=== PATIENT | female | born 1980 | race Caucasian/White ===

== ENCOUNTER → 2023-12-19 11:35 | Outpatient (REF) | payer OTHER, SELFPAY | LOC: HWWDC 11:35 | PROVIDERS: ATTENDING PHYSICIAN Obstetrics & Gynecology Gynecology; FAMILY PHYSICIAN Family Medicine | DX: Z12.31 Encounter for screening mammogram for malignant neoplasm of breast (principal) | CPT/HCPCS: 77063; 77067 ==

== ENCOUNTER → 2024-01-02 09:34 | Outpatient (REF) | payer OTHER, SELFPAY | LOC: WDC 09:34 | PROVIDERS: ATTENDING PHYSICIAN Obstetrics & Gynecology Gynecology; FAMILY PHYSICIAN Family Medicine | DX: R92.8 Other abnormal and inconclusive findings on diagnostic imaging of breast (principal) | CPT/HCPCS: 76642 ==

== ENCOUNTER 2025-07-11 02:28 | Emergency (ER) | payer OTHER, SELFPAY ==
[2025-07-11 02:44] VITALS: BP 138/86
[2025-07-11 03:00] LABS: Hematocrit 39.2 % (37.0-47.0); Hemoglobin 12.8 g/dL (12.0-16.0); Mean Corp Hgb Conc. 32.7 g/dL (33.0-37.0); Mean Corpuscular Volume 84.1 fL (81.0-99.0); Nucleated Red Blood Cells % 0 %; Platelet Count 291 10^3/uL (130-400); Red Cell Dist. Width 12.7 % (11.5-14.5)
[2025-07-11 03:27] LABS: ALT (SGPT) 22 U/L (0-35); AST (SGOT) 20 U/L (14-36); Albumin 4.4 g/dl (3.5-5.0); Alkaline Phosphatase 113 U/L (38-126); Blood Urea Nitrogen 13 mg/dl (7-17); Calcium 9.6 mg/dl (8.4-10.2); Carbon Dioxide 25 mmol/L (22-30); Chloride 108 mmol/L (98-107); Glucose 110 mg/dl (70-99); Potassium 4.1 mmol/L (3.5-5.1); Sodium 140 mmol/L (135-145); Total Protein 7.6 g/dl (6.3-8.2); eGFR > 60.00
[2025-07-11 03:31] LABS: Troponin I < 0.012 ng/ml
[2025-07-11 04:37] VITALS: BP 123/79
[2025-07-11 04:49] VITALS: BMI 30.6
[2025-07-11 05:00] VITALS: BP 119/63
[2025-07-11 06:00] VITALS: BP 122/89
--- NOTE | 2025-07-11 06:29 | ED.GENMED ---
History of Present Illness
General
Chief Complaint: Breathing Problem
Source: patient
Exam Limitations: none
Time Seen by Provider: 07/11/25 06:09
History of Present Illness
History of Present Illness:
Note:
CHIEF COMPLAINT(S)
Left arm pain and difficulty breathing.
HISTORY OF PRESENT ILLNESS
The patient is a 45-year-old female who presented with a primary complaint of left arm pain. The symptoms began around 11 PM the prior evening while the patient was watching a movie. The pain was described as a heaviness and dull ache primarily
concentrated from the mid-upper arm to the mid-forearm near the elbow. She mentioned the pain was significant enough to cause her to stop watching the movie. At the onset, the patient was at rest. The discomfort was not associated with chest pain
but was accompanied by a feeling of inability to take a deep breath. She states that she wonders if she got herself worked up. She felt occasional queasiness, although it was unclear if this was due to anxiety. The patient denied neck pain or any
recent neck injuries. She has no history of smoking or regular medication use, though she mentioned an allergy to Dermabond. The symptomatology was noted to have improved by the time of presentation but intensified from tolerable to worse before
subsiding. She has had recent blood work and this was reviewed at bedside. Total cholesterol was 199. HDL and LDL were within range. PCP will continue to monitor
PAST MEDICAL AND SURGICAL HISTORY
The patient has undergone two surgeries in the past three years. The details of the surgeries were not specified, but the patient recalled experiencing difficulty breathing upon waking from anesthesia.
ADDITIONAL HISTORY OBTAINED FROM SOURCES OTHER THAN THE PATIENT
Not applicable.
EXTERNAL RECORDS REVIEWED
The patient mentioned recent lab work and results from [facility], including cholesterol levels and other biomarkers. A recent EKG and troponin levels were normal, and there was no indication of pneumonia or cardiac enlargement on chest
x-ray. A repeated troponin test was planned to confirm these findings.
CHRONIC MEDICAL CONDITIONS SIGNIFICANTLY AFFECTING CARE
High cholesterol levels were noted, based on recent lab evaluations.
SOCIAL DETERMINANTS AFFECTING HEALTH
The patient reported no alcohol or drug use and no smoking history. She also denied caffeine consumption.
MEDICATIONS
The patient reported no current medications.
REVIEW OF SYSTEMS
- Musculoskeletal: Left arm pain described as heaviness and dull ache.
- Respiratory: Difficulty taking a deep breath at the onset of symptoms.
- Neurological: No related symptoms reported.
- Gastrointestinal: Occasional feelings of queasiness, potentially anxiety-related.
PHYSICAL EXAM
General: Alert, no acute distress.
Skin: Warm, dry.
Head: Normocephalic, atraumatic.
Neck: Supple, trachea midline.
Eye Ear, Nose, Mouth, and Throat: Oral mucosa moist.
Cardiovascular: Normal peripheral perfusion, no edema. Heart regular without murmur
Respiratory: Respirations are non-labored. Lungs clear to auscultation bilaterally
Gastrointestinal: Abdomen nondistended.
Back: Normal range of motion, normal alignment.
Musculoskeletal: Normal range of motion, normal strength. Normal distal cap refill bilaterally. Arm nontender. Normal range of motion of the elbow and shoulder on the left. No edema
Neurological: Alert and oriented to person, place, time, and situation, no focal neurological deficit observed.
Psychiatric: Cooperative, appropriate mood & affect.
PROBLEM LIST
Acute:
- Left arm pain with heaviness
- Difficulty breathing
PLAN
- Repeat troponin to rule out cardiac causes definitively.
- Observation for 45 minutes to correlate troponin result, then discharge if normal.
- Reassurance provided that emergency causes such as a heart attack or vascular issues are unlikely.
- Patient advised to return to the emergency room should symptoms worsen or the repeat troponin be abnormal.
DIFFERENTIAL DIAGNOSIS
The Differential Diagnosis includes, in no particular order and is not limited to:
- Cervical radiculopathy
- Musculoskeletal strain or injury
- Thoracic outlet syndrome
- Anxiety or panic attack
- Peripheral neuropathy
- Myocardial ischemia
- Angina
- Brachial plexopathy
- Pulmonary embolism
- Gastroesophageal reflux disease
EKG
My independent EKG interpretation is:
- Rhythm: Normal sinus rhythm
- Heart Rate: Within normal limits
- CA Interval: Normal
- QRS Duration: Normal
- QT Interval: Normal
- [place]: Normal
- Abnormalities: None observed
- Ischemic Changes: None observed
Disposition:
SUMMARY OF ENCOUNTER
The patient is a 45-year-old female who presented to the emergency department with non-traumatic left arm pain and difficulty breathing. The pain began the previous evening and was described as a heaviness and dull ache. She also experienced an
inability to take a deep breath. By the time of presentation, her symptoms had largely resolved. The initial work-up included a normal EKG and a negative troponin test. Given the timing of her symptoms, a repeat troponin test was planned to confirm
the absence of cardiac involvement. Differential diagnoses considered included cervical radiculopathy. Her physical examination showed no arterial compromise or clinical signs of aortic dissection.
DISPOSITION
Discharge.
ASSESSMENT
The primary assessment includes evaluating the possibility of cervical radiculopathy and ruling out cardiac causes for the symptoms.
PLAN
The plan includes repeating the troponin test to further rule out cardiac causes and reassurance that emergency causes such as heart attack or vascular issues are unlikely. The patient was advised to monitor her symptoms and seek follow-up care.
INDEPENDENT REVIEW OF LABS AND INTERPRETATION OF TESTS
- My independent review of EKG is normal sinus rhythm with no abnormalities or ischemic changes observed.
- My independent review of troponin is negative.
PATIENT EDUCATION AND COUNSELING
The patient was counseled that urgent causes like myocardial ischemia are unlikely, and she should monitor symptoms, seeking further care if they worsen.
MEDICAL DECISION MAKING
- Complexity of Data Reviewed: Chronic conditions affecting care include high cholesterol levels.
- Data:
Category 1: My independent interpretation of EKG and troponin tests shows normal findings, supporting the decision for outpatient management.
- Risk: Consideration of Admission/Observation: Escalation of care including admission/observation was considered given the complexity and risk of the patients presenting complaint, exam findings, and/or their underlying comorbidities. However,
ultimately, I feel the patient is safe for outpatient management with close follow-up. Reasoning: Work-up reassuring, does not reveal any acute life/organ-threatening processes, patients symptoms well controlled upon reevaluation, reexamination is
reassuring, vitals are stable, patient agreeable with discharge, reliable for follow-up.
DIAGNOSIS
- Cervical radiculopathy (suspected).
- Arm pain, site unspecified (ICD-10: M79.609).
Past History
Past History
ED Past Surgical History: , Gynecological and Other
Social History
Tobacco: Non-smoker
Personal:
Phy Exam
Physical Exam
Physical Exam:
.
Scores
Heart Failure Risk
Heart Failure Risk Score: Not Applicable
Course
Orders/Labs/Results
Orders:
Orders
07/11/25 02:32
Electrocardiogram (*1) Urgent
Reason for Study: Chest Pain
07/11/25 02:33
EKG- Treatment ONCE
07/11/25 02:49
Electrocardiogram (*1) Urgent
Reason for Study: Other
Other Reason for Exam: Respiratory Distress
Cardiac Monitoring- Treatment ONCE
CR Chest - 2 Views Urgent
Comment:
Reason For Exam: respiratory distress
O2 Therapy [RESP] Urgent
Titrate/Wean O2 to maintain O2 sat greater than (%): 93
Special Instructions: TO MAINTAIN CONTINUOUS O2 SATS >/= 93%
Pulse Ox/cont/shift [RESP] Urgent
Quantity: 1
Special Instructions: continuous pulse ox
07/11/25 02:56
Complete Blood Count/With Diff Urgent
Comprehensive Metabolic Panel Urgent
NT-proBNP Urgent
Troponin I Urgent
07/11/25 06:34
Troponin I Urgent
Abnormal Lab Results
07/11/25
02:56
WBC 11.5 H 10^3/uL
(4.8-10.8)
MCHC 32.7 L g/dL
(33.0-37.0)
MPV 10.8 H fL
(7.4-10.4)
Abs Immat Gran (auto) 0.1 H 10^3/uL
(0-0.05)
Absolute Neuts (auto) 7.4 H 10^3/uL
(1.4-6.5)
Absolute Monos (auto) 1.0 H 10^3/uL
(0.1-0.6)
Chloride 108 H mmol/L
(98-107)
Creatinine 0.4 L mg/dL
(0.6-1.0)
Glucose 110 H mg/dl
(70-99)
07/11/25 02:56
07/11/25 02:56
Vital Signs
Initial and Last Documented VS:
Initial Vital Signs
Temp Pulse Resp BP Pulse Ox
98.1 F 72 20 138/86 100
07/11/25 02:44 07/11/25 02:44 07/11/25 02:44 07/11/25 02:44 07/11/25 02:44
Last Documented Vital Signs
Temp Pulse Resp BP Pulse Ox
98.1 F 83 17 122/89 100
07/11/25 02:44 07/11/25 06:45 07/11/25 06:45 07/11/25 06:00 07/11/25 06:31
*Pulse Oximetry
SaO2: 100
Oxygen Mode of Delivery: Room air
Patient hypoxic: no
*Critical Care Note
Total Time (30-74mins, 75-104mins- exclusive of procedures): Not Applicable
ED Attending Note
-
Portions of this chart may have been created with voice recognition software.� Occasional wrong word or��sound alike� substitutions may have occurred due to the inherent limitations of voice recognition software.
Discharge Plan
Departure
Patient Disposition: Home (Routine Discharge)
Date of Disposition: 07/11/25
Time of Disposition: 06:30
Patient with high blood pressure during this ER visit?: No
Discharge Problem:
Arm pain
Prescriptions:
No Action
sennosides-docusate sodium 1 TABLET tablet
1 tab PO DAILYPRN PRN (Reason: constipation) Qty: 0 0RF
oxycodone-acetaminophen 5 MG/325 MG tablet
1 tab PO Q3HPRN PRN (Reason: moderate pain) Qty: 7 0RF
ibuprofen 600 MG tablet
600 mg PO Q6HPRN PRN (Reason: moderate pain/cramps) Qty: 30 0RF
PNV,calcium 04-pzaw-[id number] acid [ Vitamin Plus Low Iron] 1 TABLET tablet
1 tab PO DAILY Qty: 0 0RF
Referrals:
aMria Elena Christian DO [Family Provider, Family Practice]
Activity Restrictions/Additional Instructions:
Arm Discomfort
Return immediately for chest pain, shortness of breath, weakness of any kind, worsening symptoms or any other concerns. Please see your doctor in the next 1 week for follow-up and reevaluation.
Interventions
Interventions:
*Risk Screen - Suicide Last Done: 07/11/25 02:44
*General Assessment Last Done: 07/11/25 02:44
*Neglect/Abuse Screening Last Done: 07/11/25 02:44
*ED- Fall Risk Assessment Last Done: 07/11/25 02:44
*ED COVID-19 Vaccine History Last Done: 07/11/25 02:44
*Nursing Disposition Last Done: 07/11/25 06:49
ED- Cardiac Assessment Last Done: 07/11/25 04:50
ED- Pulmonary Assessment Last Done: 07/11/25 04:50
Discharge Date and Time
Discharge Date/Time: 07/11/25 06:54
Print Language: FRISIAN
[2025-07-11 07:09] LABS: Troponin I < 0.012 ng/ml
== END 2025-07-11 06:54 | disposition home or self-care (01) ==
LOC: EMR 02:28
PROVIDERS: Emergency Medicine; EMERGENCY PHYSICIAN Emergency Medicine; FAMILY PHYSICIAN Family Medicine
DX: M79.602 Pain in left arm (principal); E78.00 Pure hypercholesterolemia, unspecified
CPT/HCPCS: 99284; 71046; 80053; 83880; 84484; 85025; 93005; 96360; 96361; 96372